=== PATIENT | male | born 1955 ===

== ENCOUNTER → 2023-08-10 09:43 | Outpatient (REF) | payer MEDICARE, BC, SELFPAY | LOC: HWRAD 09:43 | PROVIDERS: ATTENDING PHYSICIAN Family Medicine | DX: R41.82 Altered mental status, unspecified (principal) | CPT/HCPCS: 70450 ==

== ENCOUNTER → 2024-02-14 16:26 | Outpatient (REF) | payer MEDICARE, BC, SELFPAY | LOC: RAD 16:26 | PROVIDERS: ATTENDING PHYSICIAN Family Medicine; FAMILY PHYSICIAN Family Medicine | DX: R10.9 Unspecified abdominal pain (principal) | CPT/HCPCS: 74178; Q9967 ==

== ENCOUNTER 2024-04-22 05:15 | Emergency (ER) | payer MEDICARE, BC, SELFPAY ==
[2024-04-22 05:37] VITALS: BP 174/80
[2024-04-22 06:09] LABS: COVID-19 Antigen Negative (Negative)
--- NOTE | 2024-04-22 07:49 | ED.GENMED ---
History of Present Illness
General
Chief Complaint: Cold/Flu/URI Symptoms
Source: patient
Exam Limitations: none
Time Seen by Provider: 04/22/24 07:35
History of Present Illness
History of Present Illness:
68yoM with a history of type 2 diabetes, hypertension, and seasonal allergies presenting with his for evaluation of postnasal drip. Symptoms have been ongoing for the past few days. He reports nasal congestion and feeling like there is a lot
of mucus in the back of his throat. He is clearing his throat frequently due to his symptoms. Symptoms are worse at nighttime and he has not been able to sleep well since his symptoms began. He has been using Cierra without much relief. He
called his PCP yesterday to discuss his symptoms. He was advised to start taking Prevacid which he started yesterday. Patient denies any acid reflux but does state he is belching. He denies any chest pain, shortness of breath, abdominal pain,
fevers.
Past History
Past History
ED Past Medical History: HTN, Hypercholesterolemia and NIDDM
ED Past Surgical History: Cholecystectomy
Social History
Tobacco: Non-smoker
Phy Exam
General Physical Exam
General Presentation: well appearing and no apparent distress
General age: appears stated age
General Skin: warm and dry
General Habitus: normal
General Mental: alert
General Hydration: appears well hydrated
ENT Exam
ENT Exam: TM's normal, neck supple, normocephalic and other (No tonsillar enlargement, erythema, or exudates. Uvula midline. Normal phonation. Tolerating oral secretions.)
Additional ENT: Frequent clearing of throat
Cardiovascular Exam
Cardiovascular Exam: regular rate/rhythm and no murmur
Pulmonary Exam
Pulmonary Exam: lungs clear, no respiratory distress, no rales, no crackles and no rhonchi
Neurological Exam
Neurological Exam: alert
[place] Coma Scale
Eye Opening: Spontaneous
Verbal Response: Oriented
Motor Response: Obeys Commands
GCS Total Score: 15
Skin Exam
Skin Exam: normal color and warm/dry
Psychiatric Exam
Psychiatric Exam: normal mood/affect
Course
Orders/Labs/Results
Orders:
Orders
04/22/24 05:44
COVID-19 Antigen Urgent
Source: Nasal Swab
Influenza A+B Rapid Molecular Urgent
MARY Source: Nasal Swab
Specimen Description:
Vital Signs
Initial and Last Documented VS:
Initial Vital Signs
Temp Pulse Resp BP Pulse Ox
98.4 F 72 24 174/80 98
04/22/24 05:37 04/22/24 05:37 04/22/24 05:37 04/22/24 05:37 04/22/24 05:37
Last Documented Vital Signs
Temp Pulse Resp BP Pulse Ox
98.4 F 72 24 174/80 98
04/22/24 05:37 04/22/24 05:37 04/22/24 05:37 04/22/24 05:37 04/22/24 05:37
MDM/Problems Addressed
Differential Diagnosis Includes:
68yoM here with postnasal drip and mucous in the back of his throat x several days. Denies fevers. No CP/SOB. Was started on Prevacid by his PCP yesterday although he denies any acid reflux. He is hypertensive with otherwise normal vitals signs.
Lungs CTA and respirations non-labored. Phonation is normal and he is tolerating oral secretions. Differential diagnosis includes but is not limited to: postnasal drip, seasonal allergies, URI
COVID/flu testing negative. No indication for further workup at this time. Supportive care discussed including Afrin x 3 days, Flonase, Mucinex, humidifier. He was advised to f/u with his PCP and ED return precautions discussed. Patient in agreement
with plan and was discharged in stable condition.
*Critical Care Note
Total Time (30-74mins, 75-104mins- exclusive of procedures): Not Applicable
ED Attending Note
-
Portions of this chart may have been created with voice recognition software.� Occasional wrong word or��sound alike� substitutions may have occurred due to the inherent limitations of voice recognition software.
Discharge Plan
Departure
Patient Disposition: Home (Routine Discharge)
Date of Disposition: 04/22/24
Time of Disposition: 07:53
Patient with high blood pressure during this ER visit?: Yes
Discharge Problem:
Postnasal drip
Instructions: Cough, runny nose, and colds
Prescriptions:
No Action
amlodipine 10 MG tablet
10 mg PO DAILY
metformin 500 MG tablet
500 mg PO BID
cetirizine 10 MG tablet
10 mg PO PRN PRN (Reason: hives)
levothyroxine 125 MCG tablet
125 mcg PO DAILY
[id number]-lycopen-lutein [Centrum Silver] 1 EACH tablet
1 tab PO DAILY
Cyclobenzaprine HCl
PO PRN PRN (Reason: muscle relaxer)
Activity Restrictions/Additional Instructions:
Use Afrin nasal spray twice daily for up to 3 days. You may also use Flonase nasal spray, Mucinex, and humidifier to help with congestion. Restart Cierra.
Please follow-up with your family doctor in 2-3 days. Return to the ER with any new or worsening symptoms.
Interventions
Interventions:
*Risk Screen - Suicide Last Done: 04/22/24 05:37
*Neglect/Abuse Screening Last Done: 04/22/24 05:37
Discharge Date and Time
Print Language: KOREAN
== END 2024-04-22 08:20 | disposition home or self-care (01) ==
LOC: EMR 05:15
PROVIDERS: Student in an Organized Health Care Education/Training Program; EMERGENCY PHYSICIAN Emergency Medicine; FAMILY PHYSICIAN Family Medicine
DX: R09.82 Postnasal drip (principal); R09.81 Nasal congestion; Z11.52 Encounter for screening for COVID-19; E78.00 Pure hypercholesterolemia, unspecified; I10 Essential (primary) hypertension; E11.9 Type 2 diabetes mellitus without complications; Z90.49 Acquired absence of other specified parts of digestive tract; Z88.0 Allergy status to penicillin; Z88.8 Allergy status to other drugs, medicaments and biological substances; Z91.018 Allergy to other foods; Z79.84 Long term (current) use of oral hypoglycemic drugs
CPT/HCPCS: 99283; 87502; 87811

== ENCOUNTER → 2024-12-25 08:28 | Outpatient (REF) | payer MEDICARE, BC, SELFPAY | LOC: DHVS 08:28 | PROVIDERS: FAMILY PHYSICIAN Family Medicine | DX: I65.23 Occlusion and stenosis of bilateral carotid arteries (principal) | CPT/HCPCS: 93880 ==

== ENCOUNTER → 2025-02-12 10:26 | Outpatient (REF) | payer MEDICARE, BC, SELFPAY | LOC: RAD 10:26 | DX: M19.90 Unspecified osteoarthritis, unspecified site (principal) | CPT/HCPCS: 72072 ==